=== PATIENT | male | born 1985 | race Caucasian/White ===

== ENCOUNTER 2025-04-19 16:22 | Observation (INO) ==
--- NOTE | 2025-04-19 16:36 | Emergency Department Note ---
History of Present Illness General Chief complaint: Wrist Pain Stated complaint: R WRIST INJURY Time Seen by Provider: 04/19/25 16:35 History of Present Illness Maximum Pain Intensity: 9 This is a 39-year-old male that presents to the emergency department via private vehicle with complaints of "right wrist pain". The patient notes history of proximal row carpectomy in 2008 due to avascular necrosis. Patient states that he receives quarterly injections into the wrists. Per review of the EMR last injection was with [facility] orthopedics on 02/08/2025. He was doing well up until yesterday. He began with some redness to the right wrist and also notes increased pain particular with any attempted range of motion of the right wrist. He does note limited range of motion of the right wrist at baseline secondary to previous surgery, but notes normally he can flex the wrist actively however is significant limited now secondary to pain and swelling. No fevers or chills but does note history of thyroid issues, receives testosterone injections and also Wegovy therefore does note feels warm from time to time. 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 Home Medications Medication Instructions Recorded Confirmed Type multivitamin (Multiple Vitamins 1 tab PO DAILY 06/07/21 04/19/25 History tablet) needle (disp) 18 G 18 gauge x 1 #24 ea 01/03/25 04/19/25 Rx 1/2" (BD PrecisionGlide Non-Sterile) syringe with needle, safety 3 mL #13 ea 01/06/25 04/19/25 Rx 23 gauge x 1 1/2" (BD Eclipse Luer-Dante) semaglutide (weight loss) 1 mg/0.5 1 mg (0.5 mL) subcut Q7D #2 mL 04/05/25 04/19/25 Rx mL subcutaneous pen injector (Wegovy) testosterone cypionate 200 mg/mL 50 mg (0.25 mL) subcut Q7D #13 mL 04/10/25 04/19/25 Rx intramuscular oil levothyroxine 150 mcg tablet 150 mcg PO DAILYBB 04/19/25 04/19/25 History omeprazole 20 mg capsule,delayed 20 mg PO DAILY PRN Heartburn 04/19/25 04/19/25 History release Allergies Allergy/AdvReac Type Severity Reaction Status Date / Time No Known Allergies Allergy Verified 01/26/25 11:12 Past Med/Surg History Problem List (Updated 04/20/25 @ 00:22 by Yusuf Gr PA-C) Status post proximal row carpectomy of wrist (Acute) Lymphangitis Cellulitis (Acute) Fatigue Pituitary abnormality Abnormal finding on thyroid function test Hypogonadotropic hypogonadism Hyperlipidemia Diarrhea RUQ pain Pulmonary nodule 1 cm or greater in diameter Change in multiple pigmented skin lesions Carpal tunnel syndrome Chronic disease of ear Vitamin D deficiency Medical History Status post proximal row carpectomy of wrist Morbid obesity Taking weekly Semaglutide for weight loss Esophageal hernia Acid reflux History of COVID-19 x3 most recent 2022 Pulmonary nodule 1 cm or greater in diameter Back pain with sciatica Carpal tunnel syndrome Surgical History History of anesthesia reaction Aspiration during a wrist surgery at age 7, no noted issues since History of surgery on right wrist as child Status post proximal row carpectomy of wrist 2008 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 History of esophagogastroduodenoscopy (EGD) History of adenoidectomy History of tonsillectomy Family History Denies family history of Ovarian cancer Prostate cancer Diabetes Myocardial infarction Breast cancer Colorectal cancer Hypertension Social History Smoking Status: Never smoker Second Hand Exposure: No; Do You Dip or Chew Tobacco: No; Hx Alcohol Use: Yes Alcohol type: beer Alcohol Intake Frequency: Monthly or Less Hx Substance Use: No Preferred Language: Kinyarwanda Communication Ability: Effective Rad Tech Required: No Beliefs That Will Affect Care: None marital status: Current Living Situation: Spouse and Family Current Living Situation Comment: 1 story house with spouse and 5 children current occupational status: employed current occupation: [employer] Other Information That Helps Us Care for You: No Feels Safe at Home: Yes Safety Concerns: Feels Safe At This Time caffeine: Yes Dental Care, Regularly: No Physical Activity Frequency: 3-4 Times per Week Physical Activity Frequency Comment: working Seatbelt Use: sometimes Sunscreen Use: Yes Assistive Devices: None Review of Systems A total of 10 systems reviewed and were otherwise negative Physical Exam Vital Signs Vital Signs - 24 hr 04/19/25 16:27 04/19/25 17:23 04/19/25 17:27 Temperature 36.6 C Temperature Source Temporal Artery Scan Pulse Rate 95 H 92 H Pulse Rate from SpO2 Sensor 93 H Respiratory Rate 17 19 Respiratory Effort / Characteristics Non-Labored Spontaneous Respiratory Depth Normal Respiratory Pattern Regular Blood Pressure 145/84 H 117/91 Blood Pressure Mean 104 98 Blood Pressure Position Sitting Pulse Oximetry 96 97 Oxygen Delivery Method Room Air Room Air Sepsis Recent Fever Within 48 Hours No Sepsis New/Unexplained Change in Mental Status No Sepsis Action Taken by Nursing No Action Required 04/19/25 17:30 04/19/25 17:36 04/19/25 18:00 Temperature Temperature Source Pulse Rate 98 H 83 Pulse Rate from SpO2 Sensor Respiratory Rate 14 Respiratory Effort / Characteristics Respiratory Depth Respiratory Pattern Blood Pressure 125/67 138/63 Blood Pressure Mean 85 88 Blood Pressure Position Pulse Oximetry 95 Oxygen Delivery Method Room Air Sepsis Recent Fever Within 48 Hours Sepsis New/Unexplained Change in Mental Status Sepsis Action Taken by Nursing VITAL SIGNS - Vital signs and nursing notes were reviewed. Stable and afebrile. GENERAL - 39-year-old male appearing his stated age who is in no acute distress. Communicates well with provider and answers questions appropriately. SKIN -erythema and edema to the right radial wrist region HEAD - NC/AT. CARDIAC - RRR with S1/S2. No murmur, rubs, or gallops appreciated. EXTREMITIES - No clubbing or peripheral cyanosis. There is increased erythema and edema as well as increased warmth to the right radial wrist. No crepitus. No fluctuance. No wounds. Right radial pulse within normal limits. Mountain Bike Guide strength mildly diminished on the right secondary to the left secondary to right wrist pain. Right proximal and mid forearm nontender. Cap refill of all digits of the right hand within normal limits .+5/5 strength noted in UE/LE bilaterally. NEUROLOGIC - Cranial nerves II through XII grossly intact. PSYCH -alert, oriented and pleasant on exam Course Administered Medications Pantoprazole Sodium (Pantoprazole 40 Mg Tab) 40 mg PO BID PRN PRN Reason: gerd Stop: 05/19/25 21:16 Last Admin: 04/19/25 22:17 Dose: 40 mg Documented By: jose francisco Semaglutide (Semaglutide Inj) 1 each SQ Q7D@0900 [facility] Stop: 05/19/25 22:14 Last Admin: 04/19/25 22:17 Dose: 1 each Documented By: jose francisco Discontinued Medications Acetaminophen (Acetaminophen 325 Mg Tab) 650 mg PO NOW STA Stop: 04/19/25 16:53 Last Admin: 04/19/25 17:20 Dose: 650 mg Documented By: HECTOR Gadobutrol (Gadobutrol 65ml Vial) 11 ml IV ONCE ONE Stop: 04/19/25 19:54 Last Admin: 04/19/25 19:54 Dose: 11 ml Documented By: KIARA Cefazolin Sodium (Ancef 2000mg) 2,000 mg in 15 mls @ 3.75 mls/min IV NOW STA Stop: 04/19/25 18:11 Last Admin: 04/19/25 18:29 Dose: 3.75 mls/min Documented By: HECTOR Vancomycin HCl 2,250 mg/ (Sodium Chloride) 545 mls @ 200 mls/hr IV NOW ONE Stop: 04/19/25 21:30 Last Infusion: 04/19/25 23:22 Dose: Infused Documented By: jose francisco Admin: 04/19/25 20:25 Dose: 200 mls/hr Documented By: SIGIFREDO Ketorolac Tromethamine (Ketorolac Tromethamine 15 Mg/Ml Vial) 10 mg IV NOW ONE Stop: 04/19/25 18:27 Last Admin: 04/19/25 18:51 Dose: 10 mg Documented By: HECTOR Medical Decision Making Laboratory Data 04/19/25 17:01 04/19/25 17:01 Lab Results 04/19/25 04/19/25 04/19/25 Range/Units 17:01 17:01 17:16 WBC 10.22 (4.8-10.8) K/ul RBC 6.24 H (4.70-6.10) M/uL Hgb 17.5 (14.0-18.0) g/dl Hct 52.1 H (42.0-52.0) % MCV 83.5 (80.0-100.0) fL MCH 28.0 (25.0-34.0) pg MCHC 33.6 (32.0-36.0) g/dL RDW Std Deviation 39.4 (36.4-46.3) fL RDW Coeff of Aleyda 13.1 (11.5-14.5) % Plt Count 254 (130-400) K/uL MPV 9.8 (9.4-12.4) fL Immature Gran % (Auto) 0.3 % Neut % (Auto) 71.6 % Lymph % (Auto) 17.1 % [place] % (Auto) 8.8 % Eos % (Auto) 1.6 % Baso % (Auto) 0.6 % Neut # (Auto) 7.32 H (1.40-6.50) K/uL Lymph # (Auto) 1.75 (1.20-3.40) K/uL [place] # (Auto) 0.90 H (0.11-0.59) K/uL Eos # (Auto) 0.16 (0.00-0.50) K/uL Baso # (Auto) 0.06 (0.00-0.20) K/uL Immature Gran # (Auto) 0.03 (0.01-0.20) K/uL ESR 17 H (0-15) mm/hr Sodium 140 (136-145) mmol/L Potassium 3.5 (3.5-5.1) mmol/L Chloride 103 (98-107) mmol/L Carbon Dioxide 30 (21-32) mmol/L Anion Gap 7 (3-11) BUN 14 (6-23) mg/dl Creatinine 1.08 (0.6-1.4) mg/dl Est Cr Clr Drug Dosing 105.6 ml/min eGFR 90.64 BUN/Creatinine Ratio 13.0 (10-20) Glucose 71 (70-99(Fasting)) mg/dl Uric Acid 7.1 (2.6-7.2) mg/dl Calcium 9.4 (8.6-10.3) mg/dl Total Bilirubin 2.4 H (0.2-1.0) mg/dl AST 37 (13-39) U/L ALT 31 (7-52) U/L Alkaline Phosphatase 49 (34-104) U/L C-Reactive Protein 3.26 H (0-0.5) mg/dl Total Protein 7.2 (6.0-8.3) gm/dl Albumin 4.8 (3.4-5.0) gm/dl Globulin 2.4 L (2.5-4.0) gm/dl Albumin/Globulin Ratio 2.0 (0.9-2) Procalcitonin < 0.02 Cancelled (0-0.5) ng/ml Nasal Screen MRSA (PCR) Negative (Negative) Lyme Disease Screen Negative (Negative) Imaging Data Radiologist's Impression: Wrist X-Ray 04/19/25 16:51 Clinical History: Pain. 4 views of the right wrist are submitted for review. Findings: The scaphoid, lunate, and triquetrum have been resected. There is negative ulnar variance. No definite acute fracture is seen. No subluxation or dislocation is seen. There is suspected mild degenerative joint disease of the radiocarpal joint. No other osseous abnormality is identified. There are no radiopaque foreign bodies. Impression: 1. Prior resection of the scaphoid, lunate, and triquetrum 2. No definite acute pathology Electronically signed by Raymundo Booker 04-19-2025 5:17 PM MDM Narrative Patient was seen and evaluated as above in room A12b. Review was performed of triage nursing notes and vital signs. After obtaining a thorough history and physical examination the above work up was performed. Patient presents today for evaluation of right wrist pain. There is erythema described above now. Options of care were discussed with the patient. IV access was established. Labs were drawn. There is no leukocytosis or concerning anemia. ESR and CRP are elevated. Procalcitonin is undetectable. Lyme screen is negative. Uric acid is normal. Blood cultures pending. Right wrist x-ray reviewed and there is evidence of prior resection and some of the wrist bones. No acute fracture seen. 1702-[id number] was notified by ED analytical laboratory technician that the patient now notes red streaking to the right wrist region. I went and inspected the right wrist and there unfortunately is now proximal tracking lymphangitic streaking it appears from the region of erythema overlying the radial wrist tracking proximal through the ventral forearm to the level of the elbow anteriorly. IV antibiotics ordered. I do believe that further evaluation and management in the inpatient setting is warranted. I did briefly discuss case with Dr. Cleveland of orthopedics, patient will be admitted to medicine and orthopedics will consult. I did order an MRI with and without contrast of the wrist which is pending at this time. GCS: 15 In the evaluation and treatment of this patient the following differential diagnoses were entertained: Cellulitis, abscess, septic joint, Lyme arthritis, gouty arthritis, among others. Impression & Plan Cellulitis, Status post proximal row carpectomy of wrist Discharge Plan Visit Data Chief Complaint: Wrist Pain Stated Complaint: R WRIST INJURY ED Provider: Itzel Bhatia ED Midlevel Provider: Yusuf Gr Discharge Problem: Cellulitis, Status post proximal row carpectomy of wrist Patient Disposition: Admitted As Inpatient Condition: Good Discharge Instructions Interventions: ED Discharge Assessment Last Done: 04/19/25 20:19
--- NOTE | 2025-04-19 17:18 | XRay Report ---
Clinical History: Pain. 4 views of the right wrist are submitted for review. Findings: The scaphoid, lunate, and triquetrum have been resected. There is negative ulnar variance. No definite acute fracture is seen. No subluxation or dislocation is seen. There is suspected mild degenerative joint disease of the radiocarpal joint. No other osseous abnormality is identified. There are no radiopaque foreign bodies. Impression: 1. Prior resection of the scaphoid, lunate, and triquetrum 2. No definite acute pathology Electronically signed by Raymundo Booker 04-19-2025 5:17 PM
[2025-04-19 17:19] LABS: Hematocrit (blood only) 52.1 % (42.0-52.0); Hemoglobin 17.5 g/dl (14.0-18.0); Immature Granulocytes # (auto) 0.03 K/uL (0.01-0.20); Immature Granulocytes % (auto) 0.3 %; Mean Corpuscular Hemoglobin 28.0 pg (25.0-34.0); Mean Corpuscular Volume 83.5 fL (80.0-100.0); Platelet Count 254 K/uL (130-400); RDW Standard Deviation 39.4 fL (36.4-46.3); Red Blood Count 6.24 M/uL (4.70-6.10); White Blood Count 10.22 K/ul (4.8-10.8)
[2025-04-19] MEDS: ACETAMINOPHEN 325 MG TAB PO STA (17:20)
[2025-04-19 17:39] LABS: Alanine Aminotransferase 31.0 U/L (7-52); Albumin Globulin Ratio 2.0 (0.9-2); Alkaline Phosphatase 49.0 U/L (34-104); Anion Gap 7.0 (3-11); Bilirubin,Total 2.4 mg/dl (0.2-1.0); Blood Urea Nitrogen 14.0 mg/dl (6-23); Calcium 9.4 mg/dl (8.6-10.3); Carbon Dioxide 30.0 mmol/L (21-32); Chloride 103.0 mmol/L (98-107); Creatinine Clr Calc Pharmacy 105.6 ml/min; Globulin 2.4 gm/dl (2.5-4.0); Glucose 71.0 mg/dl (70-99(Fasting)); Potassium 3.5 mmol/L (3.5-5.1); Sodium 140.0 mmol/L (136-145); Total Protein 7.2 gm/dl (6.0-8.3); Uric Acid 7.1 mg/dl (2.6-7.2)
[2025-04-19 17:55] LABS: Procalcitonin < 0.02 ng/ml (0-0.5)
[2025-04-19 18:07] LABS: Lyme Screen Rflx Confirmation Negative (Negative)
--- NOTE | 2025-04-19 18:27 | History & Physical Report ---
<Statement entered by Shyann Levy MD - 04/20/25 14:38> I have reviewed vital signs, chart notes, labs and imaging. I have personally seen, evaluated and examined the patient. I have also discussed the management of the patient with the LETI and I agree with the exam findings documented in the history and physical examination and the documented assessment and plan unless otherwise stated below. 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 Patient presented due to right wrist swelling, erythema, and pain. CXR was negative for acute changes however for patient being admitted for further workup given significant history and mild concern for septic joint. #cellulitis/lymphangiitis - concern for tenosynovitis, less concern for septic joint given not circumferential. Hx of osteonecrosis of same wrist. ESR 17, Crp 3.26, WC negative, Procal negative. No open wound to site of erythema. - MR wrist w w/o con ordered - Ancef given in ed, continue - Will add vancomycin, however no noted hx of MRSA Blood cultures ordered MRSA swab ordered Orthopedics team consulted, await eval in the morning - Tylenol prn, Toradol prn, morphine for breakthrough pain #GERD continue PPI #hypogonadotrophic hypogonadism testosterone injections on Sundays, hold at this time #hypothyroidism - continue levothyroxine VTE ppx: SCDs, low risk Dispo: med surg Admission and Anticipated Discharge Date Admission Date: 04/19/25 History of Present Illness Chief Complaint: wrist pain Primary Care Provider: Nadia Strauss MD Patient is a 39-year-old male with a 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 Patient presented due to right wrist swelling, erythema, and pain. CXR was negative for acute changes however for patient being admitted for further workup given significant history and mild concern for septic joint. Patient seen at bedside. He stated the swelling and redness began yesterday and he now has decreased range of motion, however decreased range of motion given history of extensive surgery and bone resection. In 2008 he had an injury to his wrist and then was found to have osteonecrosis of numerous bones. He stated he has not felt pain like this since then and that this feels similar. He denies any fevers or chills however is often hot because he is on testosterone, injections on Sundays. He denies any chest pain, shortness of breath, trauma to his wrist. He denies nicotine or alcohol use. He denies any history of Pseudomonas or MRSA. He only took his levothyroxine this morning, he is due for his Wegovy this evening which is ordered. He wishes to be full code. He is agreeable to admission to have orthopedics eval and MRI of his wrist. Allergies Allergy/AdvReac Type Severity Reaction Status Date / Time No Known Allergies Allergy Verified 01/26/25 11:12 Home Medications Medication Instructions Recorded Confirmed Type multivitamin (Multiple Vitamins 1 tab PO DAILY 06/07/21 04/19/25 History tablet) needle (disp) 18 G 18 gauge x 1 #24 ea 01/03/25 04/19/25 Rx 1/2" (BD PrecisionGlide Non-Sterile) syringe with needle, safety 3 mL #13 ea 01/06/25 04/19/25 Rx 23 gauge x 1 1/2" (BD Eclipse Luer-Dante) semaglutide (weight loss) 1 mg/0.5 1 mg (0.5 mL) subcut Q7D #2 mL 04/05/25 04/19/25 Rx mL subcutaneous pen injector (Wegovy) testosterone cypionate 200 mg/mL 50 mg (0.25 mL) subcut Q7D #13 mL 04/10/25 04/19/25 Rx intramuscular oil levothyroxine 150 mcg tablet 150 mcg PO DAILYBB 04/19/25 04/19/25 History omeprazole 20 mg capsule,delayed 20 mg PO DAILY PRN Heartburn 04/19/25 04/19/25 History release Past Med/Surg History Problem List (Updated 04/19/25 @ 19:05 by Joy Roberts PA-C) Status post proximal row carpectomy of wrist Lymphangitis Cellulitis Fatigue Pituitary abnormality Abnormal finding on thyroid function test Hypogonadotropic hypogonadism Hyperlipidemia Diarrhea RUQ pain Pulmonary nodule 1 cm or greater in diameter Change in multiple pigmented skin lesions Carpal tunnel syndrome Chronic disease of ear Vitamin D deficiency Medical History Status post proximal row carpectomy of wrist Morbid obesity Taking weekly Semaglutide for weight loss Esophageal hernia Acid reflux History of COVID-19 x3 most recent 2022 Pulmonary nodule 1 cm or greater in diameter Back pain with sciatica Carpal tunnel syndrome Surgical History History of anesthesia reaction Aspiration during a wrist surgery at age 7, no noted issues since History of surgery on right wrist as child Status post proximal row carpectomy of wrist 2008 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 History of esophagogastroduodenoscopy (EGD) History of adenoidectomy History of tonsillectomy Family History Denies family history of Ovarian cancer Prostate cancer Diabetes Myocardial infarction Breast cancer Colorectal cancer Hypertension Social History Smoking Status: Never smoker Second Hand Exposure: No; Do You Dip or Chew Tobacco: No; Hx Alcohol Use: Yes Alcohol type: wine and hard liquor Alcohol Intake Frequency: Monthly or Less Hx Substance Use: No Preferred Language: Turkish Communication Ability: Effective Restaurant Area Manager Required: No Beliefs That Will Affect Care: None marital status: Current Living Situation: Spouse current occupational status: employed current occupation: [employer] Feels Safe at Home: Yes caffeine: Yes Dental Care, Regularly: No Physical Activity Frequency: 3-4 Times per Week Physical Activity Frequency Comment: working Seatbelt Use: sometimes Sunscreen Use: Yes Assistive Devices: None Review of Systems 2 Review of Systems: see HPI Physical Exam 2 Physical Exam: The patient is awake, alert and oriented 3, well developed and well nourished, normocephalic and atraumatic, in no acute distress. Non-toxic appearing. HEENT- EOMI, mucous membranes moist. Hearing grossly intact. Heart-normal S1 and S2. No murmurs, rubs or gallops. Lungs-clear bilaterally, no respiratory distress, no accessory muscle use. Abdomen-normal bowel sounds and soft. No ascites noted. Non-tender. Extremities- no clubbing, cyanosis, or edema. Right wrist with palmar erythema, mild swelling, streaking noted. See image below. Rheumatologic-limited ROM of right wrist. Psychiatric-normal affect. Results & Data Results & Data Vital Signs (Past 12 Hours) Vital Signs Temp Pulse Resp BP Pulse Ox O2 Del Method 04/19/25 18:00 83 14 138/63 95 Room Air 04/19/25 17:36 98 H 04/19/25 17:30 125/67 04/19/25 17:27 92 H 19 97 Room Air 04/19/25 17:23 117/91 04/19/25 16:27 36.6 C 95 H 17 145/84 H 96 Room Air Laboratory Results reviewed cbc, cmp, crp, procal, esr Diagnostic Findings reviewed wrist xr Code Status & VTE Plan Code Status full code VTE Prophylaxis Plan VTE Prophylaxis will be ordered: Yes PG Care Time/CCT Total # of Minutes Spent Total Time Spent with Patient: Total time spent is greater than 50% in coordination of care (as documented) at patient's floor/unit and/or counseling patient: Coding Level of Care Code 84685 INT INP/OBS CARE 3/75MIN Diagnoses Cellulitis L03.90 Lymphangitis I89.1 Status post proximal row carpectomy of wrist Z98.890
[2025-04-19] MEDS ORDERED: VANCOMYCIN CONSULT ACTIVE PRN ×2 (18:47→21:17)
[2025-04-19] MEDS: KETOROLAC TROMETHAMINE 15 MG/ML VIAL IV ONE (18:51)
[2025-04-19] MEDS ORDERED: MoRPHine SULFATE 4 MG/ML 1 ML CARP\\VIAL IV PRN (18:55)
[2025-04-19] MEDS ORDERED: MoRPHine SULFATE 2 MG/ML CARP IV PRN (18:55)
[2025-04-19] MEDS: GADOBUTROL 65ML VIAL IV ONE (19:54)
[2025-04-19] MEDS: VANCOMYCIN HCL 2,250 MG in SODIUM CHLORIDE 0.9% 500 ML IV ONE (20:25)
[2025-04-19] MEDS ORDERED: ONDANSETRON INJ 2 MG/ML 2 ML VIAL IV PRN (21:17)
[2025-04-19] MEDS ORDERED: DOCUSATE SODIUM 100 MG CAP PO PRN (21:17)
[2025-04-19] MEDS ORDERED: MELATONIN 3 MG TAB PO PRN (21:17)
--- NOTE | 2025-04-19 21:24 | Communication Note ---
Date of Service: April 19, 2025 39 y/o with remote wrist surgery and ongoing quarterly steroid injections (last early January) admitted with acute onset of R wrist pain and erythema. Affecting plantar side of wrist with lymphangitic streaking developing during ED course. Pain and tenderness over ventral wrist with warmth and erythema, no induration or fluctuance, lymphangitis tracking up forearm to elbow. Erythema and warmth are not circumferential do not seem to extend across dorsal aspect. Has pain with flexion/extension on ventral side and some radiating pain with thumb flexio n and extension. Wrist is somewhat enlarged, not clear whether postsurgical changes or possible effusion A/P: R wrist cellulitis with rapid progression and development of lymphangitis, typical of strep infection. Rule out septic wrist. Last wrist steroid infection >2 mo ago. -continue cefazolin, add vancomycin though not purulent -MRSA nares -MRI wrist -consult ortho
[2025-04-19] MEDS: SEMAGLUTIDE INJ SQ SCH (22:17)
[2025-04-20] MEDS: KETOROLAC TROMETHAMINE 15 MG/ML VIAL IV PRN (02:23)
[2025-04-20] MEDS: LEVOTHYROXINE SODIUM 150 MCG TABLET PO SCH (06:14)
[2025-04-20] MEDS: VANCOMYCIN HCL 1,250 MG in SODIUM CHLORIDE 0.9% 250 ML IV SCH (06:15)
[2025-04-20 07:28] VITALS: TEMP 97.9
[2025-04-20] MEDS: ACETAMINOPHEN 325 MG TAB PO PRN (07:36)
[2025-04-20 08:06] LABS: Anion Gap 4.0 (3-11); Blood Urea Nitrogen 14.0 mg/dl (6-23); Calcium 8.4 mg/dl (8.6-10.3); Carbon Dioxide 30.0 mmol/L (21-32); Chloride 105.0 mmol/L (98-107); Creatinine Clr Calc Pharmacy 115.2 ml/min; Glucose 102.0 mg/dl (70-99(Fasting)); Potassium 3.6 mmol/L (3.5-5.1); Sodium 139.0 mmol/L (136-145)
[2025-04-20 08:12] LABS: Hematocrit (blood only) 46.0 % (42.0-52.0); Hemoglobin 15.7 g/dl (14.0-18.0); Immature Granulocytes # (auto) 0.02 K/uL (0.01-0.20); Immature Granulocytes % (auto) 0.4 %; Mean Corpuscular Hemoglobin 28.7 pg (25.0-34.0); Mean Corpuscular Volume 84.1 fL (80.0-100.0); Platelet Count 222 K/uL (130-400); RDW Standard Deviation 39.8 fL (36.4-46.3); Red Blood Count 5.47 M/uL (4.70-6.10); White Blood Count 4.99 K/ul (4.8-10.8)
--- NOTE | 2025-04-20 08:14 | Magnetic Resonance Report ---
EXAM: MR wrist RT wo/w con CLINICAL HISTORY: R wrist pain, hx surgery 2009, erythema, edema. TECHNIQUE: A multi-parametric multi-sequential MRI of the right wrist has been performed with and without contrast. 11 mL of Gadavist was injected intravenously without complications. Images were sent through PACs for diagnostic interpretation. COMPARISON: 04/19/2025 XR FINDINGS: Status post-surgical carpectomy of the right scaphoid, lunate, and triquetrum bones. No Preoperative scans are available for comprehensive comparison. However, the current examination reveals: The triangular fibrocartilage complex: The foveal and ulnar attachments of the triangular fibrocartilage ulnomeniscal homologue, Ulnocarpal ligament, show altered signals, consistent with partial tears. Joints: Hemosiderin deposition is seen at the operative bed. Advanced degenerative changes are seen at the distal radius, capitate, hamate, trapezium, and trapezoid bones. Consistent with degenerative joint disease (Secondary osteoarthritis). A wide zone of edema is seen at the Distal radius with subcortical linear hypointensity highly suggestive of an Insufficiency fracture (IF). Ligaments and Tendons: Altered signals of the Right extensor pollicis brevis (EPB) and abductor pollicis longus (APL) with thickening opposite the radial styloid process. Findings suggest Tendinitis/partial tears. The right extensor carpi ulnaris tendon shows thickening with altered signals consistent with tendinitis/partial tear. The carpal tunnel chose intermediate signal material surrounding the flexor Digitorum superficialis and profundus tendons and the right medial nerve with intense enhancement after Gd-DTPA injection. Chronic synovitis is suggested. Correlation with electrophysiological studies is recommended. Unremarkable Extensor tendon compartments. Intact Intrinsic and extrinsic ligaments. Intact scapholunate and lunotriquetral ligaments. Soft Tissues: Periarticular subcutaneous edema, most appreciated at the radial aspect, exhibits bright signals on STIRWI consistent with posttraumatic soft tissue contusion. Muscles: Normal appearance of the surrounding musculature. No muscle atrophy or abnormal signal changes. Neurovascular Structures: Normal appearance of the visualized neurovascular structures. No evidence of compression or abnormal signal changes. Ulnar variance: Minus ulnar variance. IMPRESSION: 1. Status post-surgical carpectomy of the right scaphoid, lunate, and triquetrum bones. No Preoperative scans are available for comprehensive comparison. However, the current examination reveals: 2. Hemosiderin deposition is seen at the operative bed. 3. Advanced degenerative changes are seen at the distal radius, capitate, hamate, trapezium, and trapezoid bones. Consistent with degenerative joint disease (Secondary osteoarthritis). A wide zone of edema is seen at the Distal radius with subcortical linear hypointensity highly suggestive of an Insufficiency fracture (IF). 4. Tendinitis/partial tear of the right extensor pollicis brevis (EPB) and abductor pollicis longus (APL) tendons. 5. Tendinitis/partial tear of the right extensor carpi ulnaris tendon. 6. Imaging feature highly suggestive of chronic synovitis and secondary carpal tunnel syndrome. Correlation with electrophysiological studies is recommended. 7. Minus ulnar variance. 8. The comparison matches the radiographic findings. Electronically signed by Mac Londono 04-20-2025 08:14 AM
[2025-04-20] MEDS ORDERED: VANCOMYCIN HCL 1,750 MG in SODIUM CHLORIDE 0.9% 500 ML IV SCH (09:00)
[2025-04-20 10:11] LABS: Alanine Aminotransferase 24.0 U/L (7-52); Alkaline Phosphatase 40.0 U/L (34-104); Bilirubin,Total 2.4 mg/dl (0.2-1.0); Total Protein 6.2 gm/dl (6.0-8.3)
--- NOTE | 2025-04-20 12:47 | Orthopedic Consultation ---
Date of Service April 20, 2025 Assessment & Plan (1) Right wrist pain: * Case/imaging reviewed and discussed with Dr Poole * Based off exam and imaging findings low concern for deep joint infection, findings are consistent with cellulitis versus on chronic flare of known degenerative disease * Recommend continued conservative care. * Joint aspiration or further procedure not indicated at this time * Pain control, NSAIDs as able, ice, elevation * Activity as tolerated, cock up wrist brace as needed * Daily treatment: Physical Therapy/ Occupational Therapy per protocol * Remainder care per primary team * Will continue to follow History of Present Illness Reason for Consultation: . Right wrist pain Requesting Physician: . Attending Physician: Shyann Levy MD . Patient is a 39y/o male with right wrist pain. PMH including HLD, morbid obesity. Surgical history including right wrist proximal row carpectomy 2008.. Presents to hospital with right wrist pain and swelling. Per report patient with approximately 1 to 2-day history of right wrist swelling, redness, pain. Does get routine injections with Dr Chamorro secondary to severe degenerative disease throughout the wrist, most recently January 2025, no issues with wound healing, drainage, pain or swelling following most recent injection. Due to significant pain and swelling patient presents to ED for evaluation. Current workup including x-ray and MRI right wrist demonstrating severe degenerative changes throughout the wrist joint, changes suggesting chronic tenosynovitis, WBC 10. empiric antibiotics initiated in ED secondary to concern for infection. Admitted to hospital medicine team, orthopedics consulted for management recommendations. At time of exam patient sitting comfortably in bed, no acute distress. Endorses significant improvement of pain and swelling after receiving several doses of antibiotics. Still with mildmoderate tenderness and swelling of the wrist this morning however range of motion is significantly improved. Improved streaking up the forearm. Denies tingling numbness of the right hand. Allergies Allergy/AdvReac Type Severity Reaction Status Date / Time No Known Allergies Allergy Verified 01/26/25 11:12 Home Medications Medication Instructions Recorded Confirmed Type multivitamin (Multiple Vitamins 1 tab PO DAILY 06/07/21 04/19/25 History tablet) needle (disp) 18 G 18 gauge x 1 #24 ea 01/03/25 04/19/25 Rx 1/2" (BD PrecisionGlide Non-Sterile) syringe with needle, safety 3 mL #13 ea 04/11/25 07/23/25 Rx 23 gauge x 1 1/2" (BD Eclipse Luer-Dante) semaglutide (weight loss) 1 mg/0.5 1 mg (0.5 mL) subcut Q7D #2 mL 04/05/25 04/19/25 Rx mL subcutaneous pen injector (Wegovy) testosterone cypionate 200 mg/mL 50 mg (0.25 mL) subcut Q7D #13 mL 04/10/25 04/19/25 Rx intramuscular oil levothyroxine 150 mcg tablet 150 mcg PO DAILYBB 04/19/25 04/19/25 History omeprazole 20 mg capsule,delayed 20 mg PO DAILY PRN Heartburn 04/19/25 04/19/25 History release Past Med/Surg History Problem List (Updated 04/20/25 @ 12:52 by Hunter Bella PA-C) Right wrist pain Status post proximal row carpectomy of wrist (Acute) Lymphangitis Cellulitis (Acute) Fatigue Pituitary abnormality Abnormal finding on thyroid function test Hypogonadotropic hypogonadism Hyperlipidemia Diarrhea RUQ pain Pulmonary nodule 1 cm or greater in diameter Change in multiple pigmented skin lesions Carpal tunnel syndrome Chronic disease of ear Vitamin D deficiency Medical History Status post proximal row carpectomy of wrist Morbid obesity Taking weekly Semaglutide for weight loss Esophageal hernia Acid reflux History of COVID-19 x3 most recent 2022 Pulmonary nodule 1 cm or greater in diameter Back pain with sciatica Carpal tunnel syndrome Surgical History History of anesthesia reaction Aspiration during a wrist surgery at age 7, no noted issues since History of surgery on right wrist as child Status post proximal row carpectomy of wrist 2008 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 History of esophagogastroduodenoscopy (EGD) History of adenoidectomy History of tonsillectomy Family History Denies family history of Ovarian cancer Prostate cancer Diabetes Myocardial infarction Breast cancer Colorectal cancer Hypertension Social History Smoking Status: Never smoker Second Hand Exposure: No; Do You Dip or Chew Tobacco: No; Hx Alcohol Use: Yes Alcohol type: beer Alcohol Intake Frequency: Monthly or Less Hx Substance Use: No Preferred Language: Angolan Communication Ability: Effective Netting Weaver Required: No Beliefs That Will Affect Care: None marital status: Current Living Situation: Spouse and Family Current Living Situation Comment: 1 story house with spouse and 5 children current occupational status: employed current occupation: [employer] Other Information That Helps Us Care for You: No Feels Safe at Home: Yes Safety Concerns: Feels Safe At This Time caffeine: Yes Dental Care, Regularly: No Physical Activity Frequency: 3-4 Times per Week Physical Activity Frequency Comment: working Seatbelt Use: sometimes Sunscreen Use: Yes Assistive Devices: None Review of Systems All systems reviewed & are unremarkable except as noted in HPI & below. Physical Exam . * General: Alert and oriented, no acute distress * Constitutional: well-developed, well-nourished. * Respiratory: Normal respiratory effort, no distress * Gastrointestinal: No tenderness to palpation, no rigidity or guarding. * Skin: No rash or lesion. * Neurologic: Grossly normal * Musculoskeletal: Right wrist with moderate volar soft tissue induration and edema. Well-healed surgical incision of the dorsal wrist. Otherwise no erythema throughout the hand or forearm, no other deformity. TTP radial aspe ct of the dorsal carpal region. Otherwise no specific tenderness throughout the forearm, ulnar wrist, hand or fingers. AROM wrist flexion intact but stiff secondary to mild pain, approximately 60 degrees. Extension of the wrist limited to 30 degrees per patient baseline, no pain with motion. Sensation intact radial/median/ulnar nerve dissipations. Brisk capillary refill. Results & Data Results & Data Laboratory Results . 04/19/25 18:00 Aerobic Blood Culture - Pending Blood Anaerobic Blood Culture - Pending 04/19/25 17:27 Aerobic Blood Culture - Pending Blood Anaerobic Blood Culture - Pending 04/20/25 04/19/25 04/19/25 07:20 17:16 17:01 WBC 4.99 D RBC 5.47 Hgb 15.7 Hct 46.0 MCV 84.1 MCH 28.7 MCHC 34.1 RDW Std Deviation 39.8 RDW Coeff of Aleyda 13.0 Plt Count 222 MPV 9.9 Immature Gran % (Auto) 0.4 Neut % (Auto) 62.6 Lymph % (Auto) 24.8 [place] % (Auto) 8.6 Eos % (Auto) 2.6 Baso % (Auto) 1.0 Neut # (Auto) 3.12 Lymph # (Auto) 1.24 [place] # (Auto) 0.43 Eos # (Auto) 0.13 Baso # (Auto) 0.05 Immature Gran # (Auto) 0.02 ESR Sodium 139 Potassium 3.6 Chloride 105 Carbon Dioxide 30 Anion Gap 4 BUN 14 Creatinine 0.99 Est Cr Clr Drug Dosing 115.2 eGFR 100.62 BUN/Creatinine Ratio 14.1 Glucose 102 H Uric Acid Calcium 8.4 L Total Bilirubin 2.4 H Direct Bilirubin 0.3 H AST 27 ALT 24 Alkaline Phosphatase 40 C-Reactive Protein Total Protein 6.2 Albumin 3.7 Globulin Albumin/Globulin Ratio Procalcitonin Cancelled Nasal Screen MRSA (PCR) Negative Lyme Disease Screen Negative 04/19/25 17:01 WBC 10.22 RBC 6.24 H Hgb 17.5 Hct 52.1 H MCV 83.5 MCH 28.0 MCHC 33.6 RDW Std Deviation 39.4 RDW Coeff of Aleyda 13.1 Plt Count 254 MPV 9.8 Immature Gran % (Auto) 0.3 Neut % (Auto) 71.6 Lymph % (Auto) 17.1 [place] % (Auto) 8.8 Eos % (Auto) 1.6 Baso % (Auto) 0.6 Neut # (Auto) 7.32 H Lymph # (Auto) 1.75 [place] # (Auto) 0.90 H Eos # (Auto) 0.16 Baso # (Auto) 0.06 Immature Gran # (Auto) 0.03 ESR 17 H Sodium 140 Potassium 3.5 Chloride 103 Carbon Dioxide 30 Anion Gap 7 BUN 14 Creatinine 1.08 Est Cr Clr Drug Dosing 105.6 eGFR 90.64 BUN/Creatinine Ratio 13.0 Glucose 71 Uric Acid 7.1 Calcium 9.4 Total Bilirubin 2.4 H Direct Bilirubin AST 37 ALT 31 Alkaline Phosphatase 49 C-Reactive Protein 3.26 H Total Protein 7.2 Albumin 4.8 Globulin 2.4 L Albumin/Globulin Ratio 2.0 Procalcitonin < 0.02 Nasal Screen MRSA (PCR) Lyme Disease Screen Diagnostic Findings . Wrist X-Ray 04/19/25 16:51 Clinical History: Pain. 4 views of the right wrist are submitted for review. Findings: The scaphoid, lunate, and triquetrum have been resected. There is negative ulnar variance. No definite acute fracture is seen. No subluxation or dislocation is seen. There is suspected mild degenerative joint disease of the radiocarpal joint. No other osseous abnormality is identified. There are no radiopaque foreign bodies. Impression: 1. Prior resection of the scaphoid, lunate, and triquetrum 2. No definite acute pathology Electronically signed by Raymundo Booker 04-19-2025 5:17 PM Wrist MRI 04/19/25 18:09 EXAM: MR wrist RT wo/w con CLINICAL HISTORY: R wrist pain, hx surgery 2009, erythema, edema. TECHNIQUE: A multi-parametric multi-sequential MRI of the right wrist has been performed with and without contrast. 11 mL of Gadavist was injected intravenously without complications. Images were sent through PACs for diagnostic interpretation. COMPARISON: 04/19/2025 XR FINDINGS: Status post-surgical carpectomy of the right scaphoid, lunate, and triquetrum bones. No Preoperative scans are available for comprehensive comparison. However, the current examination reveals: The triangular fibrocartilage complex: The foveal and ulnar attachments of the triangular fibrocartilage ulnomeniscal homologue, Ulnocarpal ligament, show altered signals, consistent with partial tears. Joints: Hemosiderin deposition is seen at the operative bed. Advanced degenerative changes are seen at the distal radius, capitate, hamate, trapezium, and trapezoid bones. Consistent with degenerative joint disease (Secondary osteoarthritis). A wide zone of edema is seen at the Distal radius with subcortical linear hypointensity highly suggestive of an Insufficiency fracture (IF). Ligaments and Tendons: Altered signals of the Right extensor pollicis brevis (EPB) and abductor pollicis longus (APL) with thickening opposite the radial styloid process. Findings suggest Tendinitis/partial tears. The right extensor carpi ulnaris tendon shows thickening with altered signals consistent with tendinitis/partial tear. The carpal tunnel chose intermediate signal material surrounding the flexor Digitorum superficialis and profundus tendons and the right medial nerve with intense enhancement after Gd-DTPA injection. Chronic synovitis is suggested. Correlation with electrophysiological studies is recommended. Unremarkable Extensor tendon compartments. Intact Intrinsic and extrinsic ligaments. Intact scapholunate and lunotriquetral ligaments. Soft Tissues: Periarticular subcutaneous edema, most appreciated at the radial aspect, exhibits bright signals on STIRWI consistent with posttraumatic soft tissue contusion. Muscles: Normal appearance of the surrounding musculature. No muscle atrophy or abnormal signal changes. Neurovascular Structures: Normal appearance of the visualized neurovascular structures. No evidence of compression or abnormal signal changes. Ulnar variance: Minus ulnar variance. IMPRESSION: 1. Status post-surgical carpectomy of the right scaphoid, lunate, and triquetrum bones. No Preoperative scans are available for comprehensive comparison. However, the current examination reveals: 2. Hemosiderin deposition is seen at the operative bed. 3. Advanced degenerative changes are seen at the distal radius, capitate, hamate, trapezium, and trapezoid bones. Consistent with degenerative joint disease (Secondary osteoarthritis). A wide zone of edema is seen at the Distal radius with subcortical linear hypointensity highly suggestive of an Insufficiency fracture (IF). 4. Tendinitis/partial tear of the right extensor pollicis brevis (EPB) and abductor pollicis longus (APL) tendons. 5. Tendinitis/partial tear of the right extensor carpi ulnaris tendon. 6. Imaging feature highly suggestive of chronic synovitis and secondary carpal tunnel syndrome. Correlation with electrophysiological studies is recommended. 7. Minus ulnar variance. 8. The comparison matches the radiographic findings. Electronically signed by Mac Londono 04-20-2025 08:14 AM PG Care Time/CCT Total # of Minutes Spent Total Time Spent with Patient: Total time spent is greater than 50% in coordination of care (as documented) at patient's floor/unit and/or counseling patient: C[place] [address] IN/OBS CONSULT LVL 2,35M Patient Type Established Medical Decision Making Straight Forward Diagnoses Right wrist pain M25.531
[2025-04-20 14:28] VITALS: BP 112/69; PULSE 76; RESP 18; O2SAT 96
--- NOTE | 2025-04-22 19:01 | Discharge Summary ---
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 Patient presented due to right wrist swelling, erythema, and pain. CXR was negative for acute changes however for patient being admitted for further workup given significant history and mild concern for septic joint. #cellulitis/lymphangiitis - concern for tenosynovitis, less concern for septic joint given not circumferential. Hx of osteonecrosis of same wrist. ESR 17, Crp 3.26, WC negative, Procal negative. No open wound to site of erythema. - treated with cefazolin, vancomycin given in ED but stopped since no hx MRSA and nares swab negative - MR wrist w w/o con obtained (see below) - orthopedic surgery consulted - did not recommend aspiration or I&D, lucia risk of deep space infection was low - substantially improved in under 24h - blood cultures NGTD >48h, not finalized. unlikely to be bacteremic - discharged on oral cefadroxil - follow up with Dr. Chamorro #GERD continue PPI #hypogonadotrophic hypogonadism testosterone injections on Sundays #hypothyroidism - continue levothyroxine MRI right wrist 04/19 IMPRESSION: 1. Status post-surgical carpectomy of the right scaphoid, lunate, and triquetrum bones. No Preoperative scans are available for comprehensive comparison. However, the current examination reveals: 2. Hemosiderin deposition is seen at the operative bed. 3. Advanced degenerative changes are seen at the distal radius, capitate, hamate, trapezium, and trapezoid bones. Consistent with degenerative joint disease (Secondary osteoarthritis). A wide zone of edema is seen at the Distal radius with subcortical linear hypointensity highly suggestive of an Insufficiency fracture (IF). 4. Tendinitis/partial tear of the right extensor pollicis brevis (EPB) and abductor pollicis longus (APL) tendons. 5. Tendinitis/partial tear of the right extensor carpi ulnaris tendon. 6. Imaging feature highly suggestive of chronic synovitis and secondary carpal tunnel syndrome. Correlation with electrophysiological studies is recommended. 7. Minus ulnar variance. 8. The comparison matches the radiographic findings. 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 Patient presented due to right wrist swelling, erythema, and pain. CXR was negative for acute changes however for patient being admitted for further workup given significant history and mild concern for septic joint. Patient seen at bedside. He stated the swelling and redness began yesterday and he now has decreased range of motion, however decreased range of motion given history of extensive surgery and bone resection. In 2008 he had an injury to his wrist and then was found to have osteonecrosis of numerous bones. He stated he has not felt pain like this since then and that this feels similar. He denies any fevers or chills however is often hot because he is on testosterone, injections on Sundays. He denies any chest pain, shortness of breath, trauma to his wrist. He denies nicotine or alcohol use. He denies any history of Pseudomonas or MRSA. He only took his levothyroxine this morning, he is due for his Wegovy this evening which is ordered. He wishes to be full code. He is agreeable to admission to have orthopedics eval and MRI of his wrist. Discharge Exam Last 24h vitals reviewed GEN: no acute distress, sitting in bed HEENT: pupils equal, sclerae anicteric, moist MM RESP: normal WOB CV: ABD: : no chawla SKIN: warm and dry, no generalized rashes R wrist erythema substantially improved, nearly resolved, lymphangitis resolved. ROM improved with wrist flexion/extension and thumb extension no significant pain NEURO: AOx person, place, and situation. Face symmetric, speech normal, moves 4 ext spontaneously and equally Discharge Plan Discharge Items Patient Disposition: Home - Self-Care Reason For Visit: CELLULITIS LYMPHANGITIS Discharge Diagnosis: Right wrist cellulitis Condition on Discharge: Good Activity: Per Instructions section Non-emergency contact: Primary Care Provider Call non-emergency contact if: you have any medication questions, your symptoms worsen and your temperature is above 101 Follow-up/Referrals: Nadia Strauss MD [Primary Care Provider] - Anthony Martins MD [Physician] - Diet: Regular Addtl Attending Provider Instructions: You were treated for skin infection of right wrist Based on MRI findings and orthopedic evaluation, its unlikely you have a deeper infection Finish a course of cefadroxil for skin infection Ortho recommended conservative care: -ice and elevate -activity as tolerated -may wear cock-up wrist splint as needed for comfort (carpal tunnel type splint/brace) -take acetaminophen and/or naproxen as needed for pain for up to two weeks -follow up with Dr. Chamorro It was a pleasure taking care of you in the hospital, Shyann Levy MD Pending Studies at Discharge: No Stand-Alone Forms: My [facility] Shoeboxed, Smoking Cessation Medications and DC Order Prescriptions: New cefadroxil 500 mg capsule 1,000 mg PO BID Qty: 28 0RF Continued (DME) BD PrecisionGlide Non-Sterile 18 gauge x 1 1/2" needle See Rx Instructions .Route Qty: 24 1RF Rx Instructions: use to draw up testosterone (DME) BD Eclipse Luer-Dante 3 mL 23 gauge x 1 1/2" syringe See Rx Instructions .Route Qty: 13 1RF Rx Instructions: Use once a week to inject testosterone Wegovy 1 mg/0.5 mL pen injector 1 mg subcut Q7D Qty: 2 4RF Rx Instructions: wednesdays testosterone cypionate 200 mg/mL oil 50 mg subcut Q7D Qty: 13 1RF Rx Instructions: Give 1 mL vials sundays multivitamin [Multiple Vitamins] Tablet 1 tab PO DAILY omeprazole 20 mg capsule,delayed release(DR/EC) 20 mg PO DAILY PRN (Reason: Heartburn) levothyroxine 150 mcg tablet 150 mcg PO DAILYBB Discharge Orders: Discharge Order (Routine); Ordered 04/20/25 Ordered By: Shyann Levy Admission Data Admit Date/Time: 04/19/25 18:55 Attending Provider: Shyann Levy Admit Provider: Shyann Levy Primary Care Provider: Nadia Strauss Other Providers: Hunter Cleveland; Shyann Levy Other Interventions: Discharge Summary Assessment (RN) Last Done: 04/20/25 17:27 Hospital Stay Data Consultations 04/19/25 18:10 ED Decision to Admit Stat 04/19/25 21:17 Consult Orthopedic Surgery Routine Diagnostic Imagining Performed 04/19/25 18:09 MR wrist RT wo/w con Stat Pending Results Patient Have Any Pending Studies at Discharge: No Discharge Instructions Given to Patient (Per Discharging Provider) You were treated for skin infection of right wrist Based on MRI findings and orthopedic evaluation, its unlikely you have a deeper infection Finish a course of cefadroxil for skin infection Ortho recommended conservative care: -ice and elevate -activity as tolerated -may wear cock-up wrist splint as needed for comfort (carpal tunnel type splint/brace) -take acetaminophen and/or naproxen as needed for pain for up to two weeks -follow up with Dr. Chamorro It was a pleasure taking care of you in the hospital, Shyann Levy MD Total Time Total Time Spent Total Time Spent (In Minutes): <30 Coding Level of Care Code 14447 IN/OBS DISCH 30 MIN/LESS Diagnoses Cellulitis L03.90 Lymphangitis I89.1 Status post proximal row carpectomy of wrist Z98.890
== END 2025-04-20 18:03 | disposition home or self-care (01) ==
LOC: ED 16:22 → 3N 16:22